=== PATIENT | male | born 1980 | race Two or more races ===

== ENCOUNTER 2021-10-01 18:02 | Emergency (ER) | payer OTHER ==
[~2021-10-01] VITALS: Ht 172.7 cm; Wt 104.3 kg
--- NOTE | 2021-10-01 18:46 | NUR ---
[id number] C/O NECK, R SHOULDER ABD LLE PAIN S/P HITTING A WALL WHILE DRIVING. +SB, -AB, -KO . PT A/OX4. TOLERATING R/A WELL WITH NO SOB; RESP EVEN AND NON LABORED. AMBULATORY WITH STEADY GAIT.
--- NOTE | 2021-10-01 19:38 | NUR ---
PT RETURNED FROM CT
[2021-10-01] MEDS ORDERED: HYDROCODONE/APAP 5/325MG TABLET ONE (19:42)
[2021-10-01] MEDS: HYDROCODONE/APAP 5/325MG TABLET PO ONE (19:44)
[2021-10-01] MEDS ORDERED: CYCL5TAB PO (20:26)
[2021-10-01] MEDS ORDERED: IBUP-1955 PO (20:26)
--- NOTE | 2021-10-01 20:37 | NUR ---
SLING APPLIED TO PT'S R SHOULDER
[2021-10-01] MEDS ORDERED: TDAP [DIPH/PERTUSSIS/TET] 0.5 ML VIAL IM ONE ×2 (20:38→21:00)
--- NOTE | 2021-10-01 20:44 | NUR ---
Patient discharged to home in stable condition. Written and verbal after care instructions given. Patient verbalizes understanding of instruction. PT ambulatory with a steady gait
[2021-10-01 20:48] VITALS: BP 144/74
== END 2021-10-01 20:48 | disposition home or self-care (01) ==
LOC: ER 18:34
DX: S16.1XXA Strain of muscle, fascia and tendon at neck level, initial encounter (principal); S46.911A Strain of unspecified muscle, fascia and tendon at shoulder and upper arm level, right arm, initial encounter; S00.81XA Abrasion of other part of head, initial encounter; M79.662 Pain in left lower leg; K21.9 Gastro-esophageal reflux disease without esophagitis; Z79.899 Other long term (current) drug therapy; V47.5XXA Car driver injured in collision with fixed or stationary object in traffic accident, initial encounter; Y93.89 Activity, other specified; Y92.89 Other specified places as the place of occurrence of the external cause; Y99.8 Other external cause status
CPT/HCPCS: 70450-TC; 71045-TC; 72125-TC; 73030-TC; 73590-TC; 90715

== ENCOUNTER 2024-10-11 06:41 | Emergency (ER) | payer MEDICAID, OTHER ==
[~2024-10-11] VITALS: Ht 172.7 cm; Wt 89.4 kg
[~2024-10-11 06:41] MED LIST: CYCL5TAB PO; IBUP-1955 PO
[2024-10-11] MEDS ORDERED: ONDANSETRON HCL/PF 4 MG/2 ML VIAL ONE (07:27)
[2024-10-11] MEDS ORDERED: MORPHINE SULFATE INJ 4 MG/ML DISP.SYRIN ONE ×2 (07:28→08:27)
[2024-10-11] MEDS: MORPHINE SULFATE INJ 2 MG/ML DISP.SYRIN IV ONE ×2 (07:38→08:36)
[2024-10-11] MEDS: ONDANSETRON HCL/PF 4 MG/2 ML VIAL IVP ONE (07:38)
[2024-10-11 07:44] LABS: PLATELET COUNT (AUTO) 293 K/uL (150-450); RED BLOOD CELL COUNT(AUTO) 5.08 MIL/uL (4.5-6.0); RED CELL DISTRIBUTION WIDTH 13.5 % (11.5-15.0); WHITE BLOOD COUNT (AUTO) 4.9 K/uL (4.3-11.0)
[2024-10-11 07:52] LABS: CALCIUM, SERUM 8.5 mg/dL (8.5-10.1); CREATININE 0.9 mg/dL (0.6-1.3); SODIUM SERUM 140.0 mmol/L (136-145); UREA NITROGEN, BLOOD 12.0 mg/dL (7-18)
[2024-10-11 07:53] LABS: APPEARANCE,URINE CLEAR (CLEAR); BLOOD, URINE NEGATIVE Ery/uL (NEGATIVE); LEUKOCYTE ESTERASE ,URINE NEGATIVE (NEGATIVE); NITRITE, URINE NEGATIVE (NEGATIVE); UGLUCOSE NEGATIVE (NEGATIVE)
[2024-10-11 07:57] LABS: ASPARTATE AMINOTRANSFERASE 16.0 U/L (15-37); TOTAL PROTEIN, SERUM 7.1 g/dL (6.4-8.2)
[2024-10-11] MEDS ORDERED: IOHEXOL-300 100 ML VIAL IV ONE (08:23)
[2024-10-11] MEDS ORDERED: IV NS 0.9% 250 ML IV ONE (08:23)
[2024-10-11 10:00] VITALS: BP 116/79; TEMP 98.3; O2SAT 99
[2024-10-11] MEDS ORDERED: ONDA4TAB11 PO (10:17)
[2024-10-11] MEDS ORDERED: DICY10CA37 PO (10:17)
[2024-10-11] MEDS ORDERED: POLY17PO4 PO (10:17)
== END 2024-10-11 09:30 | disposition home or self-care (01) ==
LOC: ER 06:47
DX: K59.00 Constipation, unspecified (principal); R10.32 Left lower quadrant pain; R11.0 Nausea; K21.9 Gastro-esophageal reflux disease without esophagitis; Z60.2 Problems related to living alone
CPT/HCPCS: 99285; 74177; 96374; 96375; 96376; 85025; 80048; 83690; 80076; 81003; 36415; J2270 ×2; J2405; J7050; Q9967

== ENCOUNTER 2024-10-25 03:30 | Emergency (ER) | payer MEDICAID ==
[~2024-10-25] VITALS: Ht 165.1 cm; Wt 74.8 kg
[~2024-10-25 03:30] MED LIST changes: +DICY10CA37 PO; +ONDA4TAB11 PO; +POLY17PO4 PO
[2024-10-25 04:12] LABS: PLATELET COUNT (AUTO) 322 K/uL (150-450); RED BLOOD CELL COUNT(AUTO) 5.55 MIL/uL (4.5-6.0); RED CELL DISTRIBUTION WIDTH 13.5 % (11.5-15.0); WHITE BLOOD COUNT (AUTO) 6.5 K/uL (4.3-11.0)
[2024-10-25 04:20] LABS: APPEARANCE,URINE CLEAR (CLEAR); BLOOD, URINE NEGATIVE Ery/uL (NEGATIVE); LEUKOCYTE ESTERASE ,URINE NEGATIVE (NEGATIVE); NITRITE, URINE NEGATIVE (NEGATIVE); UGLUCOSE NEGATIVE (NEGATIVE)
[2024-10-25 04:27] LABS: ASPARTATE AMINOTRANSFERASE 15.0 U/L (15-37); CALCIUM, SERUM 9.3 mg/dL (8.5-10.1); CREATININE 1.1 mg/dL (0.6-1.3); SODIUM SERUM 141.0 mmol/L (136-145); TOTAL PROTEIN, SERUM 8.2 g/dL (6.4-8.2); UREA NITROGEN, BLOOD 16.0 mg/dL (7-18)
[2024-10-25 04:29] LABS: LACTIC ACID 0.9 mmol/L (0.4-2.0)
[2024-10-25 04:35] LABS: ADD URINE CULTURE NO; SQUAMOUS EPITHELIAL CELL,UR None Seen /HPF (None Seen)
[2024-10-25] MEDS ORDERED: IOHEXOL-300 100 ML VIAL IV ONE (04:49)
[2024-10-25] MEDS ORDERED: IV NS 0.9% 250 ML IV ONE (04:49)
[2024-10-25] MEDS ORDERED: CT SWABBABLE VALVE TRANS SET 1 EA INFUS.SET MC ONE (04:49)
[2024-10-25] MEDS: IV NS 0.9% 1,000 ML BAG IV ONE (04:55)
[2024-10-25] MEDS ORDERED: ONDANSETRON HCL/PF 4 MG/2 ML VIAL ONE (04:57)
[2024-10-25] MEDS ORDERED: HALOPERIDOL LACTATE INJ 5 MG/ML VIAL ONE (04:57)
[2024-10-25] MEDS ORDERED: KETOROLAC TROMETHAMINE INJ 30 MG/ML VIAL ONE (04:57)
[2024-10-25] MEDS: HALOPERIDOL LACTATE INJ 5 MG/ML VIAL IV ONE (05:06)
[2024-10-25] MEDS: KETOROLAC TROMETHAMINE 15 MG/ML VIAL IV ONE (05:09)
[2024-10-25] MEDS: ONDANSETRON HCL/PF 4 MG/2 ML VIAL IVP ONE (05:10)
[2024-10-25] MEDS ORDERED: PANTOPRAZOLE 40 MG VIAL ONE (06:09)
[2024-10-25] MEDS: PANTOPRAZOLE 40 MG VIAL IV ONE (06:16)
[2024-10-25] MEDS ORDERED: NAPR-1009 PO (06:32)
[2024-10-25] MEDS ORDERED: AMOX-427 PO (06:32)
[2024-10-25 07:26] VITALS: BP 144/99; TEMP 98.2; O2SAT 99
== END 2024-10-25 07:27 | disposition home or self-care (01) ==
LOC: ER 03:33
DX: R10.84 Generalized abdominal pain (principal); R11.2 Nausea with vomiting, unspecified; Z60.2 Problems related to living alone; Z79.899 Other long term (current) drug therapy
CPT/HCPCS: 99285; 74177; 96374; 96375; 96361; 85025; 80048; 83605; 83690; 80076; 81001; 36415; J1885; J1630; J2405; J7030; J7050; J2470; Q9967